=== PATIENT | female | born 1940 | race Caucasian/White ===

== ENCOUNTER 2020-02-17 22:16 | Inpatient (IN) | payer BC, OTHER ==
[2020-02-17 23:33] LABS: BASO % 0.4 % (0-2.0); EOS % 1.9 % (0-4.5); HEMOGLOBIN 12.9 GM/dL (10.7-15.3); LYMPH % 21.6 % (8-40); MCH 28.3 pg (25.7-33.7); MEAN CELL VOLUME 83.2 fl (80-96); MONO % 11.6 % (3.8-10.2); NEUT % 64.5 % (42.8-82.8); PLATELET COUNT 216 K/MM3 (134-434); RBC 4.57 M/mm3 (3.60-5.2); RDW 14.6 % (11.6-15.6); WHITE BLOOD COUNT 4.2 K/mm3 (4.0-10.0)
[2020-02-17] MEDS ORDERED: DEXAMETHASONE SOD PHOSPHATE 4 MG/1 ML VIAL IVPUSH ONE (23:41)
[2020-02-17] MEDS ORDERED: DEXAMETHASONE SOD PHOSPHATE 10 MG/1 ML VIAL ONE (23:41)
[2020-02-17] MEDS ORDERED: DEXAMETHASONE SOD PHOSPHATE 10 MG/1 ML VIAL IVPUSH ONE (23:41)
[2020-02-17 23:43] LABS: INR 1.08 (0.83-1.09); PROTHROMBIN TIME (PATIENT) 13.2 SEC (9.7-13.0)
[2020-02-17 23:45] LABS: ACTIVATED PTT 29.5 SECONDS (25.2-36.5)
[2020-02-17 23:48] LABS: VENOUS BASE EXCESS 1.8 mmol/L (-2-2); VENOUS PCO2 46.6 mmHg (38-52); VENOUS PH 7.387 (7.310-7.410)
[2020-02-18] LABS: CHLORIDE 104 mmol/L (98-107); POTASSIUM 3.5 mmol/L (3.5-5.1); SODIUM 138 mmol/L (136-145)
[2020-02-18 00:03] LABS: ANION GAP 6 MMOL/L (8-16); BLOOD UREA NITROGEN 12.7 mg/dL (7-18); CALCIUM 8.2 mg/dL (8.5-10.1); CO2 29 mmol/L (21-32); GLUCOSE,RANDOM 139 mg/dL (74-106)
[2020-02-18 00:04] LABS: ALBUMIN 3.2 g/dl (3.4-5.0)
[2020-02-18 00:06] LABS: BILIRUBIN,DIRECT 0.2 mg/dL (0.0-0.2); SGOT/AST 36 U/L (15-37); SGPT/ALT 28 U/L (13-61)
[2020-02-18 00:07] LABS: CREATININE 0.7 mg/dL (0.55-1.3); LDH 388 U/L (84-246)
[2020-02-18 00:08] LABS: BILIRUBIN,TOTAL 0.7 mg/dL (0.2-1); TOT PROT 6.8 g/dl (6.4-8.2)
[2020-02-18 00:09] LABS: ALK PHOS 96 U/L (45-117)
[2020-02-18 03:30] VITALS: BMI 35.6
[2020-02-18] MEDS: ENOXAPARIN NA (PORCINE) 60 MG/0.6 ML DISP.SYRIN SQ SCH ×3 (04:06→21:29)
[2020-02-18] MEDS: INSULIN SLIDING SCALE (NOVOLOG) 1 VIAL SQ SCH ×4 (06:00→21:37)
[2020-02-18] MEDS ORDERED: PT OWN MED DRAWER 7, Y5N ONE (09:38)
[2020-02-18] MEDS: ASPIRIN 81 MG CHEWABLE TABLETS PO SCH (09:47)
[2020-02-18] MEDS: ASCORBIC ACID 500 MG TABLET (FP) PO SCH (09:48)
[2020-02-18] MEDS: ZINC SULFATE 220 MG CAPSULE (FP) PO SCH (09:48)
[2020-02-18] MEDS ORDERED: HYDROCHLOROTHIAZIDE 12.5 MG CAPSULE (FP) PO SCH (10:00)
[2020-02-18] MEDS ORDERED: DEXAMETHASONE SOD PHOSPHATE 10 MG/1 ML VIAL IVPUSH SCH (10:00)
[2020-02-18] MEDS ORDERED: INSULIN (NOVOLOG) ASPART 100 UNITS/ML 10ML VIAL ONE (12:06)
[2020-02-18] MEDS ORDERED: methylPREDNISolone NA SUCC 40 MG/1 ML VIAL IVPUSH ONE (12:15)
[2020-02-18 13:19] LABS: MCH 28.5 pg (25.7-33.7); MCHC 34.1 g/dl (32.0-36.0); MEAN CELL VOLUME 83.6 fl (80-96); MEAN PLT VOLUME 8.7 fl (7.5-11.1); PLATELET COUNT 220 K/MM3 (134-434); RBC 4.55 M/mm3 (3.60-5.2); RDW 14.6 % (11.6-15.6)
[2020-02-18 13:22] LABS: POTASSIUM 3.7 mmol/L (3.5-5.1)
[2020-02-18 13:25] LABS: CALCIUM 8.3 mg/dL (8.5-10.1); MAGNESIUM 1.9 mg/dL (1.8-2.4)
[2020-02-18 13:28] LABS: CREATININE 0.5 mg/dL (0.55-1.3); PHOSPHOROUS 2.3 mg/dL (2.5-4.9)
[2020-02-18 13:30] LABS: BILIRUBIN,TOTAL 0.6 mg/dL (0.2-1); TOT PROT 6.5 g/dl (6.4-8.2)
[2020-02-18] MEDS: methylPREDNISolone NA SUCC 40 MG/1 ML VIAL IVPUSH SCH (21:27)
[2020-02-18] MEDS: NAPH,MB-DB/K PH,MBDB POWDER PACKET PO SCH (21:28)
[2020-02-18] MEDS: ATORVASTATIN CA 10 MG TABLET (FP) PO SCH (21:29)
[2020-02-19] MEDS: NAPH,MB-DB/K PH,MBDB POWDER PACKET PO SCH ×3 (06:08→21:26)
[2020-02-19] MEDS: INSULIN SLIDING SCALE (NOVOLOG) 1 VIAL SQ SCH ×4 (06:08→21:26)
[2020-02-19 06:20] LABS: BASO % 1.1 % (0-2.0); HEMATOCRIT 37.7 % (32.4-45.2); HEMOGLOBIN 12.6 GM/dL (10.7-15.3); LYMPH % 15.2 % (8-40); MCH 27.8 pg (25.7-33.7); MCHC 33.5 g/dl (32.0-36.0); MONO % 12.7 % (3.8-10.2); PLATELET COUNT 282 K/MM3 (134-434); RBC 4.54 M/mm3 (3.60-5.2); RDW 14.7 % (11.6-15.6); WHITE BLOOD COUNT 4.8 K/mm3 (4.0-10.0)
[2020-02-19 06:41] LABS: POTASSIUM 3.8 mmol/L (3.5-5.1)
[2020-02-19 06:45] LABS: CALCIUM 8.5 mg/dL (8.5-10.1)
[2020-02-19 06:46] LABS: ALBUMIN 2.8 g/dl (3.4-5.0); BLOOD UREA NITROGEN 16.4 mg/dL (7-18); MAGNESIUM 2.1 mg/dL (1.8-2.4)
[2020-02-19 06:49] LABS: CREATININE 0.5 mg/dL (0.55-1.3); PHOSPHOROUS 2.7 mg/dL (2.5-4.9)
[2020-02-19 06:50] LABS: BILIRUBIN,TOTAL 0.6 mg/dL (0.2-1); TOT PROT 6.3 g/dl (6.4-8.2)
[2020-02-19 09:12] LABS: EPI CELLS 20 /uL (0-25.1); HYALINE CASTS 1 /uL (0-3.1); PH,URINE 7.5 (5.0-8.0); URINE APPEARANCE CLEAR; URINE BACTERIA >9,000 /uL (0-1359); URINE BILIRUBIN NEGATIVE (NEGATIVE); URINE COLOR YELLOW; URINE GLUCOSE (UA) NEGATIVE (NEGATIVE); URINE KETONE TRACE (NEGATIVE); URINE LEUK ESTERASE NEGATIVE (NEGATIVE); URINE NITRITE NEGATIVE (NEGATIVE); URINE PROTEIN 2+ (NEGATIVE); URINE RBC 21 /uL (0-23.9); URINE WBC 8 /uL (0-25.8)
[2020-02-19] MEDS: ASPIRIN 81 MG CHEWABLE TABLETS PO SCH (10:41)
[2020-02-19] MEDS: ENOXAPARIN NA (PORCINE) 60 MG/0.6 ML DISP.SYRIN SQ SCH (10:42)
[2020-02-19] MEDS: ASCORBIC ACID 500 MG TABLET (FP) PO SCH (10:42)
[2020-02-19] MEDS: methylPREDNISolone NA SUCC 40 MG/1 ML VIAL IVPUSH SCH ×2 (10:42→21:26)
[2020-02-19] MEDS: ZINC SULFATE 220 MG CAPSULE (FP) PO SCH (10:42)
[2020-02-19] MEDS ORDERED: REMDESIVIR 200 MG in SODIUM CHLORIDE 210 ML IVPB ONE (13:01)
[2020-02-19] MEDS: APIXABAN 5 MG TABLET PO SCH (21:26)
[2020-02-19] MEDS: ATORVASTATIN CA 10 MG TABLET (FP) PO SCH (21:26)
[2020-02-19] MEDS ORDERED: MELATONIN 5 MG TABLETS PO ONE (21:44)
[2020-02-20] MEDS: INSULIN SLIDING SCALE (NOVOLOG) 1 VIAL SQ SCH ×4 (06:00→22:38)
[2020-02-20] MEDS: NAPH,MB-DB/K PH,MBDB POWDER PACKET PO SCH (06:00)
[2020-02-20 07:02] LABS: BASO % 0.3 % (0-2.0); HEMATOCRIT 36.9 % (32.4-45.2); HEMOGLOBIN 12.4 GM/dL (10.7-15.3); MCH 27.6 pg (25.7-33.7); MCHC 33.5 g/dl (32.0-36.0); MEAN CELL VOLUME 82.5 fl (80-96); MEAN PLT VOLUME 7.9 fl (7.5-11.1); MONO % 9.3 % (3.8-10.2); NEUT % 81.4 % (42.8-82.8); PLATELET COUNT 340 K/MM3 (134-434); RBC 4.48 M/mm3 (3.60-5.2); RDW 14.5 % (11.6-15.6)
[2020-02-20 07:11] LABS: POTASSIUM 3.7 mmol/L (3.5-5.1)
[2020-02-20 07:13] LABS: ALBUMIN 2.8 g/dl (3.4-5.0); BLOOD UREA NITROGEN 17.4 mg/dL (7-18); CALCIUM 8.6 mg/dL (8.5-10.1)
[2020-02-20 07:16] LABS: CREATININE 0.5 mg/dL (0.55-1.3)
[2020-02-20 07:18] LABS: BILIRUBIN,TOTAL 0.6 mg/dL (0.2-1); TOT PROT 6.3 g/dl (6.4-8.2)
[2020-02-20] MEDS ORDERED: HYDROCHLOROTHIAZIDE 12.5 MG CAPSULE (FP) PO SCH (10:00)
[2020-02-20] MEDS: ASPIRIN 81 MG CHEWABLE TABLETS PO SCH (10:27)
[2020-02-20] MEDS: methylPREDNISolone NA SUCC 40 MG/1 ML VIAL IVPUSH SCH ×2 (10:27→22:30)
[2020-02-20] MEDS: APIXABAN 5 MG TABLET PO SCH ×2 (10:27→22:30)
[2020-02-20] MEDS: ZINC SULFATE 220 MG CAPSULE (FP) PO SCH (10:27)
[2020-02-20] MEDS: ASCORBIC ACID 500 MG TABLET (FP) PO SCH (10:27)
[2020-02-20] MEDS: HYDROCHLOROTHIAZIDE 25 MG TABLET (FP) PO SCH (10:32)
[2020-02-20] MEDS ORDERED: PT OWN MED DRAWER 7, Y5N ONE ×2 (12:37→12:38)
[2020-02-20] MEDS: REMDESIVIR 100 MG in SODIUM CHLORIDE 230 ML IVPB SCH (13:41)
[2020-02-20] MEDS: ATORVASTATIN CA 10 MG TABLET (FP) PO SCH (22:30)
[2020-02-21] MEDS: INSULIN SLIDING SCALE (NOVOLOG) 1 VIAL SQ SCH ×4 (06:24→21:36)
[2020-02-21 07:12] LABS: BASO % 0.1 % (0-2.0); HEMATOCRIT 38.5 % (32.4-45.2); HEMOGLOBIN 12.9 GM/dL (10.7-15.3); LYMPH % 9.3 % (8-40); MCH 27.4 pg (25.7-33.7); MCHC 33.5 g/dl (32.0-36.0); MEAN CELL VOLUME 81.7 fl (80-96); MEAN PLT VOLUME 7.9 fl (7.5-11.1); MONO % 6.6 % (3.8-10.2); PLATELET COUNT 364 K/MM3 (134-434); RBC 4.72 M/mm3 (3.60-5.2); RDW 14.3 % (11.6-15.6); WHITE BLOOD COUNT 7.2 K/mm3 (4.0-10.0)
[2020-02-21 07:33] LABS: POTASSIUM 4.1 mmol/L (3.5-5.1)
[2020-02-21 07:40] LABS: ALBUMIN 2.9 g/dl (3.4-5.0); BLOOD UREA NITROGEN 15.7 mg/dL (7-18); CALCIUM 8.7 mg/dL (8.5-10.1); MAGNESIUM 2.1 mg/dL (1.8-2.4)
[2020-02-21 07:44] LABS: CREATININE 0.6 mg/dL (0.55-1.3); PHOSPHOROUS 3.7 mg/dL (2.5-4.9)
[2020-02-21 07:45] LABS: BILIRUBIN,TOTAL 0.6 mg/dL (0.2-1); TOT PROT 6.4 g/dl (6.4-8.2)
[2020-02-21] MEDS: ASCORBIC ACID 500 MG TABLET (FP) PO SCH (10:16)
[2020-02-21] MEDS: ZINC SULFATE 220 MG CAPSULE (FP) PO SCH (10:16)
[2020-02-21] MEDS: APIXABAN 5 MG TABLET PO SCH ×2 (10:16→21:25)
[2020-02-21] MEDS: HYDROCHLOROTHIAZIDE 25 MG TABLET (FP) PO SCH (10:16)
[2020-02-21] MEDS: methylPREDNISolone NA SUCC 40 MG/1 ML VIAL IVPUSH SCH ×2 (10:16→21:25)
[2020-02-21] MEDS: ASPIRIN 81 MG CHEWABLE TABLETS PO SCH (10:16)
[2020-02-21] MEDS ORDERED: PT OWN MED DRAWER 7, Y5N ONE (12:54)
[2020-02-21] MEDS: REMDESIVIR 100 MG in SODIUM CHLORIDE 230 ML IVPB SCH (13:28)
[2020-02-21] MEDS: POLYETHYLENE GLYCOL 3350 119 GM BTL PO SCH (18:12)
[2020-02-21] MEDS ORDERED: MELATONIN 5 MG TABLETS PO ONE (18:51)
[2020-02-21] MEDS: ATORVASTATIN CA 10 MG TABLET (FP) PO SCH (21:24)
[2020-02-21] MEDS: INSULIN (LEVEMIR) 100 UNITS/ML UNITS SQ SCH (21:25)
[2020-02-22] MEDS ORDERED: ACETAMINOPHEN 325 MG TABLET (FP) PO ONE ×2 (03:19→20:14)
[2020-02-22] MEDS: INSULIN (LEVEMIR) 100 UNITS/ML UNITS SQ SCH ×2 (06:00→21:36)
[2020-02-22] MEDS: INSULIN SLIDING SCALE (NOVOLOG) 1 VIAL SQ SCH ×4 (06:00→21:36)
[2020-02-22] MEDS ORDERED: METHYL SALICYLATE/MENTHOL OINT 30 GM TUBE TP PRN (06:26)
[2020-02-22 06:52] LABS: BASO % 0.2 % (0-2.0); HEMATOCRIT 41.2 % (32.4-45.2); HEMOGLOBIN 14.1 GM/dL (10.7-15.3); LYMPH % 6.3 % (8-40); MCH 27.8 pg (25.7-33.7); MCHC 34.1 g/dl (32.0-36.0); MEAN CELL VOLUME 81.6 fl (80-96); MEAN PLT VOLUME 7.8 fl (7.5-11.1); MONO % 7.8 % (3.8-10.2); NEUT % 85.7 % (42.8-82.8); PLATELET COUNT 407 K/MM3 (134-434); RBC 5.05 M/mm3 (3.60-5.2); RDW 14.7 % (11.6-15.6)
[2020-02-22 07:22] LABS: POTASSIUM 3.9 mmol/L (3.5-5.1)
[2020-02-22 07:25] LABS: BLOOD UREA NITROGEN 20.8 mg/dL (7-18)
[2020-02-22 07:26] LABS: ALBUMIN 3.1 g/dl (3.4-5.0); CALCIUM 9.1 mg/dL (8.5-10.1)
[2020-02-22 07:27] LABS: MAGNESIUM 2.1 mg/dL (1.8-2.4)
[2020-02-22 07:28] LABS: CREATININE 0.6 mg/dL (0.55-1.3); PHOSPHOROUS 3.5 mg/dL (2.5-4.9)
[2020-02-22 07:29] LABS: BILIRUBIN,TOTAL 0.8 mg/dL (0.2-1)
[2020-02-22 07:30] LABS: TOT PROT 6.6 g/dl (6.4-8.2)
[2020-02-22] MEDS: ASCORBIC ACID 500 MG TABLET (FP) PO SCH (10:24)
[2020-02-22] MEDS: methylPREDNISolone NA SUCC 40 MG/1 ML VIAL IVPUSH SCH ×2 (10:24→21:32)
[2020-02-22] MEDS: APIXABAN 5 MG TABLET PO SCH ×2 (10:24→21:31)
[2020-02-22] MEDS: ZINC SULFATE 220 MG CAPSULE (FP) PO SCH (10:24)
[2020-02-22] MEDS: HYDROCHLOROTHIAZIDE 25 MG TABLET (FP) PO SCH (10:24)
[2020-02-22] MEDS: ASPIRIN 81 MG CHEWABLE TABLETS PO SCH (10:24)
[2020-02-22] MEDS ORDERED: MINERAL OIL ENEMA 133 ML ENEMA PR ONE (12:27)
[2020-02-22] MEDS: REMDESIVIR 100 MG in SODIUM CHLORIDE 230 ML IVPB SCH (14:00)
[2020-02-22] MEDS: POLYETHYLENE GLYCOL 3350 119 GM BTL PO SCH (14:00)
[2020-02-22] MEDS ORDERED: PT OWN MED DRAWER 7, Y5N ONE (14:52)
[2020-02-22] MEDS: LISINOPRIL 5 MG TABLET PO SCH (16:29)
[2020-02-22] MEDS: MELATONIN 5 MG TABLETS PO PRN (21:31)
[2020-02-22] MEDS: DOCUSATE SODIUM 100 MG CAPSULE (FP) PO SCH (21:32)
[2020-02-22] MEDS: ATORVASTATIN CA 10 MG TABLET (FP) PO SCH (21:32)
[2020-02-23] MEDS: INSULIN (LEVEMIR) 100 UNITS/ML UNITS SQ SCH ×2 (06:16→22:26)
[2020-02-23] MEDS: INSULIN SLIDING SCALE (NOVOLOG) 1 VIAL SQ SCH ×4 (06:17→22:27)
[2020-02-23 07:28] LABS: BASO % 0.2 % (0-2.0); HEMATOCRIT 42.7 % (32.4-45.2); HEMOGLOBIN 14.6 GM/dL (10.7-15.3); LYMPH % 7.1 % (8-40); MCH 28.1 pg (25.7-33.7); MCHC 34.1 g/dl (32.0-36.0); MEAN CELL VOLUME 82.4 fl (80-96); MONO % 7.5 % (3.8-10.2); NEUT % 85.2 % (42.8-82.8); PLATELET COUNT 424 K/MM3 (134-434); RBC 5.18 M/mm3 (3.60-5.2); RDW 14.7 % (11.6-15.6); WHITE BLOOD COUNT 12.1 K/mm3 (4.0-10.0)
[2020-02-23 07:56] LABS: POTASSIUM 3.9 mmol/L (3.5-5.1)
[2020-02-23 08:02] LABS: BLOOD UREA NITROGEN 22.5 mg/dL (7-18); CALCIUM 9.1 mg/dL (8.5-10.1); MAGNESIUM 2.1 mg/dL (1.8-2.4)
[2020-02-23 08:05] LABS: CREATININE 0.6 mg/dL (0.55-1.3)
[2020-02-23 08:06] LABS: BILIRUBIN,TOTAL 0.8 mg/dL (0.2-1); PHOSPHOROUS 3.6 mg/dL (2.5-4.9); TOT PROT 6.4 g/dl (6.4-8.2)
[2020-02-23] MEDS: TETRAHYDROZOLINE HCL EYE DROPS OU PRN (09:00)
[2020-02-23] MEDS: ASPIRIN 81 MG CHEWABLE TABLETS PO SCH (09:48)
[2020-02-23] MEDS: DOCUSATE SODIUM 100 MG CAPSULE (FP) PO SCH ×2 (09:48→22:28)
[2020-02-23] MEDS: HYDROCHLOROTHIAZIDE 25 MG TABLET (FP) PO SCH (09:49)
[2020-02-23] MEDS: APIXABAN 5 MG TABLET PO SCH ×2 (09:49→22:28)
[2020-02-23] MEDS: ZINC SULFATE 220 MG CAPSULE (FP) PO SCH (09:49)
[2020-02-23] MEDS: ASCORBIC ACID 500 MG TABLET (FP) PO SCH (09:49)
[2020-02-23] MEDS: methylPREDNISolone NA SUCC 40 MG/1 ML VIAL IVPUSH SCH (09:49)
[2020-02-23] MEDS: LISINOPRIL 5 MG TABLET PO SCH (09:49)
[2020-02-23] MEDS: POLYETHYLENE GLYCOL 3350 119 GM BTL PO SCH (11:24)
[2020-02-23] MEDS: REMDESIVIR 100 MG in SODIUM CHLORIDE 230 ML IVPB SCH (13:07)
[2020-02-23] MEDS: DEXAMETHASONE SOD PHOSPHATE 4 MG/1 ML VIAL IVPUSH SCH (13:09)
[2020-02-23] MEDS ORDERED: MINERAL OIL ENEMA 133 ML ENEMA RC ONE (15:13)
[2020-02-23] MEDS ORDERED: MAGNESIUM CITRATE 300 ML BOTTLE PO ONE (15:53)
[2020-02-23] MEDS: ACETAMINOPHEN 1000 MG/100 ML VIAL (NON FORMULARY) IVPB PRN (17:01)
[2020-02-23] MEDS: LIDOCAINE 5% TOPICAL PATCH TP SCH (17:01)
[2020-02-23] MEDS: ATORVASTATIN CA 10 MG TABLET (FP) PO SCH (22:28)
[2020-02-23] MEDS: LIDOCAINE PATCH REMOVAL MC SCH (22:28)
[2020-02-24] MEDS: TETRAHYDROZOLINE HCL EYE DROPS OU PRN (05:03)
[2020-02-24] MEDS: ACETAMINOPHEN 1000 MG/100 ML VIAL (NON FORMULARY) IVPB PRN (06:12)
[2020-02-24 06:45] LABS: BASO % 0.2 % (0-2.0); EOS % 0.4 % (0-4.5); HEMATOCRIT 46.9 % (32.4-45.2); HEMOGLOBIN 15.2 GM/dL (10.7-15.3); LYMPH % 8.6 % (8-40); MCH 27.2 pg (25.7-33.7); MCHC 32.4 g/dl (32.0-36.0); MEAN CELL VOLUME 83.8 fl (80-96); MEAN PLT VOLUME 8.1 fl (7.5-11.1); MONO % 9.6 % (3.8-10.2); NEUT % 81.2 % (42.8-82.8); PLATELET COUNT 497 K/MM3 (134-434); RBC 5.59 M/mm3 (3.60-5.2); RDW 14.7 % (11.6-15.6); WHITE BLOOD COUNT 18.6 K/mm3 (4.0-10.0)
[2020-02-24] MEDS: INSULIN (LEVEMIR) 100 UNITS/ML UNITS SQ SCH ×2 (07:10→22:41)
[2020-02-24] MEDS: INSULIN SLIDING SCALE (NOVOLOG) 1 VIAL SQ SCH ×4 (07:10→22:51)
[2020-02-24 07:12] LABS: POTASSIUM 4.1 mmol/L (3.5-5.1)
[2020-02-24 07:16] LABS: BLOOD UREA NITROGEN 29.7 mg/dL (7-18); CALCIUM 9.2 mg/dL (8.5-10.1); MAGNESIUM 2.7 mg/dL (1.8-2.4)
[2020-02-24 07:20] LABS: CREATININE 0.7 mg/dL (0.55-1.3)
[2020-02-24 07:22] LABS: BILIRUBIN,TOTAL 0.8 mg/dL (0.2-1); TOT PROT 6.8 g/dl (6.4-8.2)
[2020-02-24] MEDS: ASPIRIN 81 MG CHEWABLE TABLETS PO SCH (10:43)
[2020-02-24] MEDS: APIXABAN 5 MG TABLET PO SCH ×2 (10:44→22:41)
[2020-02-24] MEDS: DOCUSATE SODIUM 100 MG CAPSULE (FP) PO SCH ×2 (10:44→22:41)
[2020-02-24] MEDS: HYDROCHLOROTHIAZIDE 25 MG TABLET (FP) PO SCH (10:44)
[2020-02-24] MEDS: ASCORBIC ACID 500 MG TABLET (FP) PO SCH (10:45)
[2020-02-24] MEDS: POLYETHYLENE GLYCOL 3350 119 GM BTL PO SCH (10:45)
[2020-02-24] MEDS: ZINC SULFATE 220 MG CAPSULE (FP) PO SCH (10:45)
[2020-02-24] MEDS: LISINOPRIL 5 MG TABLET PO SCH (10:45)
[2020-02-24] MEDS: DEXAMETHASONE SOD PHOSPHATE 4 MG/1 ML VIAL IVPUSH SCH (10:46)
[2020-02-24] MEDS: LIDOCAINE 5% TOPICAL PATCH TP SCH (10:56)
[2020-02-24] MEDS: OCULAR LUBRICANT OPHTHALMIC OINTMENT 7 GM TUBE OU SCH ×2 (16:25→22:53)
[2020-02-24] MEDS ORDERED: PT OWN MED DRAWER 7, Y5N ONE (22:29)
[2020-02-24] MEDS: ATORVASTATIN CA 10 MG TABLET (FP) PO SCH (22:41)
[2020-02-24] MEDS: LIDOCAINE PATCH REMOVAL MC SCH (22:45)
[2020-02-25] MEDS: INSULIN (LEVEMIR) 100 UNITS/ML UNITS SQ SCH ×2 (06:06→22:45)
[2020-02-25] MEDS: INSULIN SLIDING SCALE (NOVOLOG) 1 VIAL SQ SCH ×4 (06:19→22:58)
[2020-02-25 06:49] LABS: BASO % 1.4 % (0-2.0); EOS % 0.3 % (0-4.5); HEMATOCRIT 43.6 % (32.4-45.2); HEMOGLOBIN 14.3 GM/dL (10.7-15.3); LYMPH % 4.8 % (8-40); MCH 27.4 pg (25.7-33.7); MCHC 32.7 g/dl (32.0-36.0); MEAN CELL VOLUME 83.9 fl (80-96); MEAN PLT VOLUME 8.5 fl (7.5-11.1); MONO % 10.8 % (3.8-10.2); NEUT % 82.7 % (42.8-82.8); PLATELET COUNT 433 K/MM3 (134-434); RDW 14.8 % (11.6-15.6); WHITE BLOOD COUNT 14.8 K/mm3 (4.0-10.0)
[2020-02-25 07:20] LABS: POTASSIUM 4.2 mmol/L (3.5-5.1)
[2020-02-25 07:26] LABS: BLOOD UREA NITROGEN 28.9 mg/dL (7-18); CALCIUM 8.7 mg/dL (8.5-10.1)
[2020-02-25 07:27] LABS: ALBUMIN 2.6 g/dl (3.4-5.0)
[2020-02-25 07:30] LABS: CREATININE 0.8 mg/dL (0.55-1.3)
[2020-02-25 07:31] LABS: BILIRUBIN,TOTAL 1.1 mg/dL (0.2-1); TOT PROT 6.1 g/dl (6.4-8.2)
[2020-02-25] MEDS: DEXAMETHASONE SOD PHOSPHATE 4 MG/1 ML VIAL IVPUSH SCH (09:50)
[2020-02-25] MEDS: DOCUSATE SODIUM 100 MG CAPSULE (FP) PO SCH ×2 (09:51→22:44)
[2020-02-25] MEDS: ASPIRIN 81 MG CHEWABLE TABLETS PO SCH (09:51)
[2020-02-25] MEDS: APIXABAN 5 MG TABLET PO SCH ×2 (09:52→22:44)
[2020-02-25] MEDS: HYDROCHLOROTHIAZIDE 25 MG TABLET (FP) PO SCH (09:52)
[2020-02-25] MEDS: LISINOPRIL 5 MG TABLET PO SCH (09:53)
[2020-02-25] MEDS: ZINC SULFATE 220 MG CAPSULE (FP) PO SCH (09:53)
[2020-02-25] MEDS: ASCORBIC ACID 500 MG TABLET (FP) PO SCH (09:53)
[2020-02-25] MEDS: OCULAR LUBRICANT OPHTHALMIC OINTMENT 7 GM TUBE OU SCH ×2 (09:54→23:06)
[2020-02-25] MEDS: LIDOCAINE 5% TOPICAL PATCH TP SCH (10:09)
[2020-02-25] MEDS: POLYETHYLENE GLYCOL 3350 119 GM BTL PO SCH (12:00)
[2020-02-25] MEDS ORDERED: ACETAMINOPHEN 325 MG TABLET (FP) PO ONE ×2 (18:34→19:24)
[2020-02-25] MEDS: ATORVASTATIN CA 10 MG TABLET (FP) PO SCH (22:44)
[2020-02-25] MEDS: LIDOCAINE PATCH REMOVAL MC SCH (22:58)
[2020-02-26] MEDS: INSULIN (LEVEMIR) 100 UNITS/ML UNITS SQ SCH ×2 (06:29→21:33)
[2020-02-26] MEDS: INSULIN SLIDING SCALE (NOVOLOG) 1 VIAL SQ SCH ×4 (06:29→21:34)
[2020-02-26 07:08] LABS: POTASSIUM 4.4 mmol/L (3.5-5.1)
[2020-02-26 07:13] LABS: ALBUMIN 2.4 g/dl (3.4-5.0); BASO % 0.4 % (0-2.0); BLOOD UREA NITROGEN 36.3 mg/dL (7-18); CALCIUM 9.2 mg/dL (8.5-10.1); EOS % 0.4 % (0-4.5); HEMOGLOBIN 13.6 GM/dL (10.7-15.3); LYMPH % 8.2 % (8-40); MAGNESIUM 2.5 mg/dL (1.8-2.4); MCH 27.6 pg (25.7-33.7); MCHC 33.1 g/dl (32.0-36.0); MEAN CELL VOLUME 83.6 fl (80-96); MEAN PLT VOLUME 8.9 fl (7.5-11.1); MONO % 11.8 % (3.8-10.2); NEUT % 79.2 % (42.8-82.8); PLATELET COUNT 418 K/MM3 (134-434); RDW 14.6 % (11.6-15.6); WHITE BLOOD COUNT 14.5 K/mm3 (4.0-10.0)
[2020-02-26 07:16] LABS: CREATININE 0.7 mg/dL (0.55-1.3); PHOSPHOROUS 3.9 mg/dL (2.5-4.9)
[2020-02-26 07:18] LABS: BILIRUBIN,TOTAL 0.8 mg/dL (0.2-1); TOT PROT 6.2 g/dl (6.4-8.2)
[2020-02-26] MEDS: ASPIRIN 81 MG CHEWABLE TABLETS PO SCH (09:42)
[2020-02-26] MEDS: ZINC SULFATE 220 MG CAPSULE (FP) PO SCH (09:42)
[2020-02-26] MEDS: HYDROCHLOROTHIAZIDE 25 MG TABLET (FP) PO SCH (09:43)
[2020-02-26] MEDS: APIXABAN 5 MG TABLET PO SCH ×2 (09:43→21:10)
[2020-02-26] MEDS: ASCORBIC ACID 500 MG TABLET (FP) PO SCH (09:44)
[2020-02-26] MEDS: LISINOPRIL 5 MG TABLET PO SCH (09:44)
[2020-02-26] MEDS: DOCUSATE SODIUM 100 MG CAPSULE (FP) PO SCH ×2 (09:44→21:10)
[2020-02-26] MEDS: LIDOCAINE 5% TOPICAL PATCH TP SCH (09:45)
[2020-02-26] MEDS: DEXAMETHASONE SOD PHOSPHATE 4 MG/1 ML VIAL IVPUSH SCH (09:48)
[2020-02-26] MEDS: POLYETHYLENE GLYCOL 3350 119 GM BTL PO SCH (09:49)
[2020-02-26] MEDS: OCULAR LUBRICANT OPHTHALMIC OINTMENT 7 GM TUBE OU SCH ×2 (10:40→21:11)
[2020-02-26] MEDS: ATORVASTATIN CA 20 MG TABLET (FP) PO SCH (21:10)
[2020-02-26] MEDS: MELATONIN 5 MG TABLETS PO PRN (21:11)
[2020-02-26] MEDS: LIDOCAINE PATCH REMOVAL MC SCH (21:11)
[2020-02-26] MEDS: TETRAHYDROZOLINE HCL EYE DROPS OU PRN (21:18)
[2020-02-27] MEDS: INSULIN SLIDING SCALE (NOVOLOG) 1 VIAL SQ SCH ×4 (06:09→22:09)
[2020-02-27] MEDS: INSULIN (LEVEMIR) 100 UNITS/ML UNITS SQ SCH ×2 (06:11→22:07)
[2020-02-27 06:17] LABS: BASO % 0.7 % (0-2.0); EOS % 0.8 % (0-4.5); HEMOGLOBIN 13.9 GM/dL (10.7-15.3); LYMPH % 9.6 % (8-40); MCH 27.6 pg (25.7-33.7); MCHC 32.4 g/dl (32.0-36.0); MEAN CELL VOLUME 85.2 fl (80-96); MEAN PLT VOLUME 9.1 fl (7.5-11.1); MONO % 9.7 % (3.8-10.2); NEUT % 79.2 % (42.8-82.8); PLATELET COUNT 393 K/MM3 (134-434); RBC 5.04 M/mm3 (3.60-5.2); RDW 14.7 % (11.6-15.6); WHITE BLOOD COUNT 14.2 K/mm3 (4.0-10.0)
[2020-02-27 06:35] LABS: POTASSIUM 4.6 mmol/L (3.5-5.1)
[2020-02-27 06:39] LABS: CALCIUM 9.3 mg/dL (8.5-10.1)
[2020-02-27 06:40] LABS: ALBUMIN 2.2 g/dl (3.4-5.0); MAGNESIUM 2.3 mg/dL (1.8-2.4)
[2020-02-27 06:42] LABS: CREATININE 0.7 mg/dL (0.55-1.3)
[2020-02-27 06:45] LABS: BILIRUBIN,TOTAL 0.7 mg/dL (0.2-1); TOT PROT 6.2 g/dl (6.4-8.2)
[2020-02-27] MEDS ORDERED: PT OWN MED DRAWER 7, Y5N ONE ×2 (08:33→10:04)
[2020-02-27] MEDS: ASPIRIN 81 MG CHEWABLE TABLETS PO SCH (09:59)
[2020-02-27] MEDS: LIDOCAINE 5% TOPICAL PATCH TP SCH (09:59)
[2020-02-27] MEDS: ZINC SULFATE 220 MG CAPSULE (FP) PO SCH (09:59)
[2020-02-27] MEDS: HYDROCHLOROTHIAZIDE 25 MG TABLET (FP) PO SCH (10:00)
[2020-02-27] MEDS: DOCUSATE SODIUM 100 MG CAPSULE (FP) PO SCH ×2 (10:00→22:08)
[2020-02-27] MEDS: DEXAMETHASONE SOD PHOSPHATE 4 MG/1 ML VIAL IVPUSH SCH (10:00)
[2020-02-27] MEDS: ASCORBIC ACID 500 MG TABLET (FP) PO SCH (10:00)
[2020-02-27] MEDS: APIXABAN 5 MG TABLET PO SCH ×2 (10:00→22:07)
[2020-02-27] MEDS: OCULAR LUBRICANT OPHTHALMIC OINTMENT 7 GM TUBE OU SCH ×2 (10:01→22:08)
[2020-02-27] MEDS: POLYETHYLENE GLYCOL 3350 119 GM BTL PO SCH (10:02)
[2020-02-27] MEDS: LISINOPRIL 5 MG TABLET PO SCH (10:02)
[2020-02-27] MEDS: VENLAFAXINE HCL 75 MG E.R. CAPSULES PO SCH (10:05)
[2020-02-27] MEDS ORDERED: MELATONIN 5 MG TABLETS PO PRN (19:35)
[2020-02-27] MEDS: ATORVASTATIN CA 20 MG TABLET (FP) PO SCH (22:06)
[2020-02-27] MEDS: LIDOCAINE PATCH REMOVAL MC SCH (22:07)
[2020-02-27] MEDS: METHYL SALICYLATE/MENTHOL OINT 30 GM TUBE TP SCH (22:08)
[2020-02-27] MEDS: PANTOPRAZOLE 40 MG TABLET PO SCH (22:08)
[2020-02-28] MEDS: INSULIN (LEVEMIR) 100 UNITS/ML UNITS SQ SCH ×2 (06:24→23:40)
[2020-02-28] MEDS: INSULIN SLIDING SCALE (NOVOLOG) 1 VIAL SQ SCH ×4 (06:24→23:41)
[2020-02-28] MEDS: TETRAHYDROZOLINE HCL EYE DROPS OU PRN ×2 (06:25→11:45)
[2020-02-28 07:50] LABS: BASO % 0.5 % (0-2.0); EOS % 0.2 % (0-4.5); HEMATOCRIT 41.2 % (32.4-45.2); HEMOGLOBIN 13.3 GM/dL (10.7-15.3); LYMPH % 8.1 % (8-40); MCH 27.2 pg (25.7-33.7); MCHC 32.3 g/dl (32.0-36.0); MEAN CELL VOLUME 84.2 fl (80-96); MONO % 11.8 % (3.8-10.2); NEUT % 79.4 % (42.8-82.8); PLATELET COUNT 416 K/MM3 (134-434); RDW 14.8 % (11.6-15.6); WHITE BLOOD COUNT 15.3 K/mm3 (4.0-10.0)
[2020-02-28 08:00] LABS: POTASSIUM 4.1 mmol/L (3.5-5.1)
[2020-02-28 08:05] LABS: ALBUMIN 2.2 g/dl (3.4-5.0); BLOOD UREA NITROGEN 28.5 mg/dL (7-18); CALCIUM 9.4 mg/dL (8.5-10.1)
[2020-02-28 08:06] LABS: MAGNESIUM 2.1 mg/dL (1.8-2.4)
[2020-02-28 08:07] LABS: CREATININE 0.5 mg/dL (0.55-1.3)
[2020-02-28 08:08] LABS: PHOSPHOROUS 3.3 mg/dL (2.5-4.9)
[2020-02-28 08:09] LABS: TOT PROT 6.2 g/dl (6.4-8.2)
[2020-02-28] MEDS ORDERED: ACETAMINOPHEN 325 MG TABLET (FP) PO PRN (10:15)
[2020-02-28] MEDS ORDERED: INSULIN (NOVOLOG) ASPART 100 UNITS/ML 10ML VIAL ONE (11:09)
[2020-02-28] MEDS: ASCORBIC ACID 500 MG TABLET (FP) PO SCH (11:19)
[2020-02-28] MEDS: POLYETHYLENE GLYCOL 3350 119 GM BTL PO SCH (11:19)
[2020-02-28] MEDS: ZINC SULFATE 220 MG CAPSULE (FP) PO SCH (11:19)
[2020-02-28] MEDS: PANTOPRAZOLE 40 MG TABLET PO SCH (11:19)
[2020-02-28] MEDS: APIXABAN 5 MG TABLET PO SCH ×2 (11:19→23:39)
[2020-02-28] MEDS: ASPIRIN 81 MG CHEWABLE TABLETS PO SCH (11:20)
[2020-02-28] MEDS: VENLAFAXINE HCL 75 MG E.R. CAPSULES PO SCH (11:20)
[2020-02-28] MEDS: DOCUSATE SODIUM 100 MG CAPSULE (FP) PO SCH ×2 (11:20→23:39)
[2020-02-28] MEDS: DEXAMETHASONE SOD PHOSPHATE 4 MG/1 ML VIAL IVPUSH SCH (11:20)
[2020-02-28] MEDS: HYDROCHLOROTHIAZIDE 25 MG TABLET (FP) PO SCH (11:21)
[2020-02-28] MEDS: LIDOCAINE 5% TOPICAL PATCH TP SCH (11:21)
[2020-02-28] MEDS: LISINOPRIL 5 MG TABLET PO SCH (11:22)
[2020-02-28] MEDS: OCULAR LUBRICANT OPHTHALMIC OINTMENT 7 GM TUBE OU SCH ×2 (11:44→23:40)
[2020-02-28] MEDS: METHYL SALICYLATE/MENTHOL OINT 30 GM TUBE TP SCH ×2 (11:45→23:39)
[2020-02-28] MEDS: LIDOCAINE PATCH REMOVAL MC SCH (23:40)
[2020-02-28] MEDS: ATORVASTATIN CA 20 MG TABLET (FP) PO SCH (23:40)
[2020-02-29] MEDS: INSULIN SLIDING SCALE (NOVOLOG) 1 VIAL SQ SCH ×4 (06:58→23:36)
[2020-02-29] MEDS: INSULIN (LEVEMIR) 100 UNITS/ML UNITS SQ SCH ×2 (06:59→23:36)
[2020-02-29] MEDS ORDERED: PT OWN MED DRAWER 7, Y5N ONE (09:48)
[2020-02-29] MEDS: ZINC SULFATE 220 MG CAPSULE (FP) PO SCH (09:54)
[2020-02-29] MEDS: PANTOPRAZOLE 40 MG TABLET PO SCH (09:54)
[2020-02-29] MEDS: ASCORBIC ACID 500 MG TABLET (FP) PO SCH (09:54)
[2020-02-29] MEDS: APIXABAN 5 MG TABLET PO SCH ×2 (09:54→23:35)
[2020-02-29] MEDS: ASPIRIN 81 MG CHEWABLE TABLETS PO SCH (09:54)
[2020-02-29] MEDS: DOCUSATE SODIUM 100 MG CAPSULE (FP) PO SCH ×2 (09:54→23:35)
[2020-02-29] MEDS: METHYL SALICYLATE/MENTHOL OINT 30 GM TUBE TP SCH ×2 (09:54→23:35)
[2020-02-29] MEDS: OCULAR LUBRICANT OPHTHALMIC OINTMENT 7 GM TUBE OU SCH ×2 (09:55→23:35)
[2020-02-29] MEDS: VENLAFAXINE HCL 75 MG E.R. CAPSULES PO SCH (09:55)
[2020-02-29] MEDS: HYDROCHLOROTHIAZIDE 25 MG TABLET (FP) PO SCH (09:55)
[2020-02-29] MEDS: LISINOPRIL 5 MG TABLET PO SCH (09:56)
[2020-02-29] MEDS: LIDOCAINE 5% TOPICAL PATCH TP SCH (09:56)
[2020-02-29] MEDS: POLYETHYLENE GLYCOL 3350 119 GM BTL PO SCH (12:15)
[2020-02-29] MEDS: LIDOCAINE PATCH REMOVAL MC SCH (23:36)
[2020-02-29] MEDS: ATORVASTATIN CA 20 MG TABLET (FP) PO SCH (23:36)
[2020-03-01] MEDS: INSULIN SLIDING SCALE (NOVOLOG) 1 VIAL SQ SCH ×4 (06:33→23:26)
[2020-03-01] MEDS: INSULIN (LEVEMIR) 100 UNITS/ML UNITS SQ SCH ×2 (06:34→21:56)
[2020-03-01] MEDS ORDERED: INSULIN (LEVEMIR) 100 UNITS/ML UNITS SQ ONE (07:08)
[2020-03-01] MEDS ORDERED: PT OWN MED DRAWER 7, Y5N ONE (09:41)
[2020-03-01] MEDS: POLYETHYLENE GLYCOL 3350 119 GM BTL PO SCH (09:45)
[2020-03-01] MEDS: ZINC SULFATE 220 MG CAPSULE (FP) PO SCH (09:46)
[2020-03-01] MEDS: ASPIRIN 81 MG CHEWABLE TABLETS PO SCH (09:46)
[2020-03-01] MEDS: HYDROCHLOROTHIAZIDE 25 MG TABLET (FP) PO SCH (09:46)
[2020-03-01] MEDS: APIXABAN 5 MG TABLET PO SCH ×2 (09:46→21:55)
[2020-03-01] MEDS: LISINOPRIL 5 MG TABLET PO SCH (09:46)
[2020-03-01] MEDS: ASCORBIC ACID 500 MG TABLET (FP) PO SCH (09:46)
[2020-03-01] MEDS: PANTOPRAZOLE 40 MG TABLET PO SCH (09:46)
[2020-03-01] MEDS: VENLAFAXINE HCL 75 MG E.R. CAPSULES PO SCH (09:47)
[2020-03-01] MEDS: DOCUSATE SODIUM 100 MG CAPSULE (FP) PO SCH ×2 (09:47→21:57)
[2020-03-01] MEDS: OCULAR LUBRICANT OPHTHALMIC OINTMENT 7 GM TUBE OU SCH ×2 (09:47→22:10)
[2020-03-01] MEDS: METHYL SALICYLATE/MENTHOL OINT 30 GM TUBE TP SCH ×2 (09:47→22:10)
[2020-03-01] MEDS: LIDOCAINE 5% TOPICAL PATCH TP SCH (10:06)
[2020-03-01] MEDS ORDERED: FUROSEMIDE 40 MG/4 ML INJECTABLE VIAL IVPUSH ONE (17:51)
[2020-03-01] MEDS: ATORVASTATIN CA 20 MG TABLET (FP) PO SCH (21:55)
[2020-03-01] MEDS: LIDOCAINE PATCH REMOVAL MC SCH (22:17)
[2020-03-02] MEDS: INSULIN (LEVEMIR) 100 UNITS/ML UNITS SQ SCH ×2 (06:23→22:36)
[2020-03-02] MEDS: INSULIN SLIDING SCALE (NOVOLOG) 1 VIAL SQ SCH ×4 (06:25→22:36)
[2020-03-02] MEDS ORDERED: PT OWN MED DRAWER 7, Y5N ONE (10:41)
[2020-03-02] MEDS: ZINC SULFATE 220 MG CAPSULE (FP) PO SCH (10:44)
[2020-03-02] MEDS: ASPIRIN 81 MG CHEWABLE TABLETS PO SCH (10:44)
[2020-03-02] MEDS: APIXABAN 5 MG TABLET PO SCH ×2 (10:45→21:42)
[2020-03-02] MEDS: DOCUSATE SODIUM 100 MG CAPSULE (FP) PO SCH ×2 (10:45→21:42)
[2020-03-02] MEDS: HYDROCHLOROTHIAZIDE 25 MG TABLET (FP) PO SCH (10:45)
[2020-03-02] MEDS: VENLAFAXINE HCL 75 MG E.R. CAPSULES PO SCH (10:45)
[2020-03-02] MEDS: METHYL SALICYLATE/MENTHOL OINT 30 GM TUBE TP SCH ×2 (10:46→22:38)
[2020-03-02] MEDS: LIDOCAINE 5% TOPICAL PATCH TP SCH (10:46)
[2020-03-02] MEDS: OCULAR LUBRICANT OPHTHALMIC OINTMENT 7 GM TUBE OU SCH ×2 (10:46→22:37)
[2020-03-02] MEDS: LISINOPRIL 5 MG TABLET PO SCH (10:47)
[2020-03-02] MEDS: ASCORBIC ACID 500 MG TABLET (FP) PO SCH (10:47)
[2020-03-02] MEDS: PANTOPRAZOLE 40 MG TABLET PO SCH (10:47)
[2020-03-02] MEDS: POLYETHYLENE GLYCOL 3350 119 GM BTL PO SCH (11:22)
[2020-03-02 12:26] LABS: POTASSIUM 3.8 mmol/L (3.5-5.1)
[2020-03-02 12:27] LABS: CALCIUM 9.3 mg/dL (8.5-10.1)
[2020-03-02 12:28] LABS: BLOOD UREA NITROGEN 47.5 mg/dL (7-18)
[2020-03-02 12:31] LABS: CREATININE 0.9 mg/dL (0.55-1.3)
[2020-03-02] MEDS ORDERED: FUROSEMIDE 40 MG/4 ML INJECTABLE VIAL IVPUSH ONE (13:11)
[2020-03-02] MEDS: ATORVASTATIN CA 20 MG TABLET (FP) PO SCH (21:42)
[2020-03-02] MEDS: LIDOCAINE PATCH REMOVAL MC SCH (22:36)
[2020-03-03] MEDS: INSULIN SLIDING SCALE (NOVOLOG) 1 VIAL SQ SCH ×4 (06:54→22:54)
[2020-03-03] MEDS: INSULIN (LEVEMIR) 100 UNITS/ML UNITS SQ SCH ×2 (06:56→22:54)
[2020-03-03] MEDS: POLYETHYLENE GLYCOL 3350 119 GM BTL PO SCH (10:24)
[2020-03-03] MEDS ORDERED: PT OWN MED DRAWER 7, Y5N ONE ×2 (10:30→22:00)
[2020-03-03] MEDS: ASCORBIC ACID 500 MG TABLET (FP) PO SCH (11:04)
[2020-03-03] MEDS: DOCUSATE SODIUM 100 MG CAPSULE (FP) PO SCH ×2 (11:05→22:25)
[2020-03-03] MEDS: LISINOPRIL 5 MG TABLET PO SCH (11:05)
[2020-03-03] MEDS: APIXABAN 5 MG TABLET PO SCH ×2 (11:05→22:24)
[2020-03-03] MEDS: PANTOPRAZOLE 40 MG TABLET PO SCH (11:05)
[2020-03-03] MEDS: VENLAFAXINE HCL 75 MG E.R. CAPSULES PO SCH (11:05)
[2020-03-03] MEDS: ASPIRIN 81 MG CHEWABLE TABLETS PO SCH (11:05)
[2020-03-03] MEDS: ZINC SULFATE 220 MG CAPSULE (FP) PO SCH (11:05)
[2020-03-03] MEDS: OCULAR LUBRICANT OPHTHALMIC OINTMENT 7 GM TUBE OU SCH ×2 (11:06→22:25)
[2020-03-03] MEDS: METHYL SALICYLATE/MENTHOL OINT 30 GM TUBE TP SCH ×2 (11:06→22:24)
[2020-03-03] MEDS: HYDROCHLOROTHIAZIDE 25 MG TABLET (FP) PO SCH (11:06)
[2020-03-03] MEDS: LIDOCAINE 5% TOPICAL PATCH TP SCH (11:07)
[2020-03-03] MEDS: ATORVASTATIN CA 20 MG TABLET (FP) PO SCH (22:24)
[2020-03-03] MEDS: LIDOCAINE PATCH REMOVAL MC SCH (22:25)
[2020-03-04] MEDS: INSULIN (LEVEMIR) 100 UNITS/ML UNITS SQ SCH ×2 (06:06→22:20)
[2020-03-04] MEDS: INSULIN SLIDING SCALE (NOVOLOG) 1 VIAL SQ SCH ×4 (06:07→22:20)
[2020-03-04] MEDS ORDERED: PT OWN MED DRAWER 7, Y5N ONE ×2 (09:37→11:49)
[2020-03-04] MEDS: ZINC SULFATE 220 MG CAPSULE (FP) PO SCH (09:42)
[2020-03-04] MEDS: PANTOPRAZOLE 40 MG TABLET PO SCH (09:42)
[2020-03-04] MEDS: VENLAFAXINE HCL 75 MG E.R. CAPSULES PO SCH (09:42)
[2020-03-04] MEDS: ASCORBIC ACID 500 MG TABLET (FP) PO SCH (09:42)
[2020-03-04] MEDS: LISINOPRIL 5 MG TABLET PO SCH (09:42)
[2020-03-04] MEDS: APIXABAN 5 MG TABLET PO SCH ×2 (09:42→22:16)
[2020-03-04] MEDS: DOCUSATE SODIUM 100 MG CAPSULE (FP) PO SCH ×2 (09:43→22:16)
[2020-03-04] MEDS: OCULAR LUBRICANT OPHTHALMIC OINTMENT 7 GM TUBE OU SCH ×2 (09:43→22:16)
[2020-03-04] MEDS: METHYL SALICYLATE/MENTHOL OINT 30 GM TUBE TP SCH ×2 (09:43→22:16)
[2020-03-04] MEDS: ASPIRIN 81 MG CHEWABLE TABLETS PO SCH (09:43)
[2020-03-04] MEDS: LIDOCAINE 5% TOPICAL PATCH TP SCH (09:43)
[2020-03-04] MEDS: HYDROCHLOROTHIAZIDE 25 MG TABLET (FP) PO SCH (09:43)
[2020-03-04] MEDS: POLYETHYLENE GLYCOL 3350 119 GM BTL PO SCH (09:44)
[2020-03-04] MEDS ORDERED: INSULIN (NOVOLOG) ASPART 100 UNITS/ML 10ML VIAL ONE (11:35)
[2020-03-04] MEDS: MAG HYDROX/ALH/SMC/DPHA/LIDO 240 ML MOUTHWASH MM SCH ×2 (11:39→17:10)
[2020-03-04] MEDS: LIDOCAINE PATCH REMOVAL MC SCH (22:16)
[2020-03-04] MEDS: ATORVASTATIN CA 20 MG TABLET (FP) PO SCH (22:16)
[2020-03-05] MEDS: MAG HYDROX/ALH/SMC/DPHA/LIDO 240 ML MOUTHWASH MM SCH ×5 (06:38→23:08)
[2020-03-05] MEDS: INSULIN SLIDING SCALE (NOVOLOG) 1 VIAL SQ SCH ×4 (06:39→22:01)
[2020-03-05] MEDS: INSULIN (LEVEMIR) 100 UNITS/ML UNITS SQ SCH ×2 (06:39→22:02)
[2020-03-05] MEDS: POLYETHYLENE GLYCOL 3350 119 GM BTL PO SCH ×2 (10:00→11:15)
[2020-03-05] MEDS ORDERED: PT OWN MED DRAWER 7, Y5N ONE ×4 (10:23→21:50)
[2020-03-05] MEDS: ZINC SULFATE 220 MG CAPSULE (FP) PO SCH (10:28)
[2020-03-05] MEDS: ASCORBIC ACID 500 MG TABLET (FP) PO SCH (10:29)
[2020-03-05] MEDS: LISINOPRIL 5 MG TABLET PO SCH (10:29)
[2020-03-05] MEDS: DOCUSATE SODIUM 100 MG CAPSULE (FP) PO SCH ×2 (10:29→21:49)
[2020-03-05] MEDS: VENLAFAXINE HCL 75 MG E.R. CAPSULES PO SCH (10:29)
[2020-03-05] MEDS: ASPIRIN 81 MG CHEWABLE TABLETS PO SCH (10:29)
[2020-03-05] MEDS: APIXABAN 5 MG TABLET PO SCH ×2 (10:29→21:39)
[2020-03-05] MEDS: PANTOPRAZOLE 40 MG TABLET PO SCH (10:29)
[2020-03-05] MEDS: METHYL SALICYLATE/MENTHOL OINT 30 GM TUBE TP SCH ×2 (10:29→21:56)
[2020-03-05] MEDS: LIDOCAINE 5% TOPICAL PATCH TP SCH (10:30)
[2020-03-05] MEDS: OCULAR LUBRICANT OPHTHALMIC OINTMENT 7 GM TUBE OU SCH ×2 (10:30→21:55)
[2020-03-05] MEDS: HYDROCHLOROTHIAZIDE 25 MG TABLET (FP) PO SCH (10:30)
[2020-03-05] MEDS: ATORVASTATIN CA 20 MG TABLET (FP) PO SCH (21:40)
[2020-03-05] MEDS: LIDOCAINE PATCH REMOVAL MC SCH (21:48)
[2020-03-06] MEDS: MAG HYDROX/ALH/SMC/DPHA/LIDO 240 ML MOUTHWASH MM SCH ×4 (05:58→23:08)
[2020-03-06] MEDS: INSULIN (LEVEMIR) 100 UNITS/ML UNITS SQ SCH ×2 (06:17→21:52)
[2020-03-06] MEDS: INSULIN SLIDING SCALE (NOVOLOG) 1 VIAL SQ SCH ×4 (06:19→21:52)
[2020-03-06] MEDS: LISINOPRIL 5 MG TABLET PO SCH (09:48)
[2020-03-06] MEDS: APIXABAN 5 MG TABLET PO SCH ×2 (09:48→21:25)
[2020-03-06] MEDS: ASPIRIN 81 MG CHEWABLE TABLETS PO SCH (09:48)
[2020-03-06] MEDS: METHYL SALICYLATE/MENTHOL OINT 30 GM TUBE TP SCH ×2 (09:48→21:25)
[2020-03-06] MEDS: ZINC SULFATE 220 MG CAPSULE (FP) PO SCH (09:48)
[2020-03-06] MEDS: PANTOPRAZOLE 40 MG TABLET PO SCH (09:48)
[2020-03-06] MEDS: ASCORBIC ACID 500 MG TABLET (FP) PO SCH (09:48)
[2020-03-06] MEDS: VENLAFAXINE HCL 75 MG E.R. CAPSULES PO SCH (09:49)
[2020-03-06] MEDS: LIDOCAINE 5% TOPICAL PATCH TP SCH (09:49)
[2020-03-06] MEDS: HYDROCHLOROTHIAZIDE 25 MG TABLET (FP) PO SCH (09:49)
[2020-03-06] MEDS: DOCUSATE SODIUM 100 MG CAPSULE (FP) PO SCH ×2 (09:49→21:26)
[2020-03-06] MEDS: POLYETHYLENE GLYCOL 3350 119 GM BTL PO SCH (09:50)
[2020-03-06] MEDS: OCULAR LUBRICANT OPHTHALMIC OINTMENT 7 GM TUBE OU SCH ×2 (09:59→21:55)
[2020-03-06] MEDS ORDERED: PT OWN MED DRAWER 7, Y5N ONE (11:06)
[2020-03-06] MEDS: ATORVASTATIN CA 20 MG TABLET (FP) PO SCH (21:26)
[2020-03-06] MEDS: LIDOCAINE PATCH REMOVAL MC SCH (21:53)
[2020-03-07] MEDS: MAG HYDROX/ALH/SMC/DPHA/LIDO 240 ML MOUTHWASH MM SCH (05:56)
[2020-03-07] MEDS: INSULIN (LEVEMIR) 100 UNITS/ML UNITS SQ SCH (06:06)
[2020-03-07] MEDS: INSULIN SLIDING SCALE (NOVOLOG) 1 VIAL SQ SCH (06:07)
[2020-03-07] MEDS ORDERED: PT OWN MED DRAWER 7, Y5N ONE (09:40)
[2020-03-07] MEDS: LISINOPRIL 5 MG TABLET PO SCH (09:45)
[2020-03-07] MEDS: ASPIRIN 81 MG CHEWABLE TABLETS PO SCH (09:45)
[2020-03-07] MEDS: ASCORBIC ACID 500 MG TABLET (FP) PO SCH (09:45)
[2020-03-07] MEDS: ZINC SULFATE 220 MG CAPSULE (FP) PO SCH (09:45)
[2020-03-07] MEDS: PANTOPRAZOLE 40 MG TABLET PO SCH (09:45)
[2020-03-07] MEDS: HYDROCHLOROTHIAZIDE 25 MG TABLET (FP) PO SCH (09:46)
[2020-03-07] MEDS: APIXABAN 5 MG TABLET PO SCH (09:46)
[2020-03-07] MEDS: DOCUSATE SODIUM 100 MG CAPSULE (FP) PO SCH (09:46)
[2020-03-07] MEDS: VENLAFAXINE HCL 75 MG E.R. CAPSULES PO SCH (09:46)
[2020-03-07] MEDS: LIDOCAINE 5% TOPICAL PATCH TP SCH (09:47)
[2020-03-07] MEDS: POLYETHYLENE GLYCOL 3350 119 GM BTL PO SCH (09:48)
[2020-03-07] MEDS: METHYL SALICYLATE/MENTHOL OINT 30 GM TUBE TP SCH (09:48)
[2020-03-07] MEDS: OCULAR LUBRICANT OPHTHALMIC OINTMENT 7 GM TUBE OU SCH (09:48)
[2020-03-07 11:10] VITALS: BP 122/66; PULSE 84; TEMP 98.7
== END 2020-03-07 11:54 | DRG 177 ==
LOC: JER 22:16 → JERBED 02-18 → EDBD 02-18 → JICU 02-18 02:05 → J8W 02-27 20:54
PROVIDERS: ADMIT Internal Medicine; ATTEND Student in an Organized Health Care Education/Training Program
PROC: 5A0 Extracorporeal or Systemic Assistance and Performance, Physiological Systems, Assistance (ICD-10-PCS; principal; 2020-02-18)
PROC: XW13325 Transfusion of Convalescent Plasma (Nonautologous) into Peripheral Vein, Percutaneous Approach, New Technology Group 5 (ICD-10-PCS; 2020-02-19)
DX: U07.1 COVID-19 (principal); J96.01 Acute respiratory failure with hypoxia; J12.89 Other viral pneumonia; I31.3 Pericardial effusion (noninflammatory); I10 Essential (primary) hypertension; E88.09 Other disorders of plasma-protein metabolism, not elsewhere classified; E78.5 Hyperlipidemia, unspecified; E11.9 Type 2 diabetes mellitus without complications; E66.9 Obesity, unspecified; Z68.35 Body mass index [BMI] 35.0-35.9, adult; K59.00 Constipation, unspecified; F32.9 Major depressive disorder, single episode, unspecified
CPT/HCPCS: 36415; 36430; 70450-TC; 71045-TC-FY; 71250-TC; 73560-TC-RT-FY; 80048; 80053; 80061; 81003; 82248; 82550; 82728; 82803; 82962; 83036; 83605; 83615; 83721; 83735; 84100; 84484; 85025; 85027; 85379; 85610; 85730; 86140; 86769; 86850; 86900; 86901; 87040; 87086; 87804; 93005; 93010; 93306-TC; 94761; 97116-GP; 97162-GP; 99285-25; C9803; J0131; J1100; P9017; U0003